=== PATIENT | male | born 1960 | race African-American/Black ===

== ENCOUNTER 2019-08-12 08:48 | Emergency (ER) | payer OTHER ==
[~2019-08-12] VITALS: Ht 172.7 cm; Wt 72.6 kg
[2019-08-12 11:54] VITALS: BP 133/84
== END 2019-08-12 11:55 | disposition left against medical advice (07) ==
LOC: ER 08:48
DX: M54.6 Pain in thoracic spine (principal); M54.5 Low back pain; W20.8XXA Other cause of strike by thrown, projected or falling object, initial encounter; Y93.89 Activity, other specified; Y92.89 Other specified places as the place of occurrence of the external cause; Y99.8 Other external cause status